=== PATIENT | female | born 2000 | race African-American/Black ===

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

== ENCOUNTER 2023-07-24 05:08 | Emergency (ER) | payer OTHER ==
[~2023-07-24] VITALS: Ht 177.8 cm; Wt 99.8 kg
[2023-07-24 05:16] VITALS: BP 122/72
[2023-07-24] MEDS ORDERED: AMOX-CLAV 875-1 EACH PO (05:24)
== END 2023-07-24 05:34 | disposition home or self-care (01) ==
LOC: ED 05:08
DX: H66.92 Otitis media, unspecified, left ear (principal); Z79.899 Other long term (current) drug therapy

== ENCOUNTER 2023-08-01 16:09 | Emergency (ER) | payer OTHER ==
[~2023-08-01] VITALS: Wt 90.7 kg
[~2023-08-01 16:09] MED LIST changes: +AMOX-CLAV 875-1 EACH PO
[2023-08-01 16:33] VITALS: BP 106/54
[2023-08-01] MEDS ORDERED: CIPROFLOX-DEXA7.5 ML OT (17:10)
[2023-08-01] MEDS ORDERED: AMOX-CLAV 875-1 EACH PO (17:10)
== END 2023-08-01 17:25 | disposition home or self-care (01) ==
LOC: ED 16:09
DX: H92.22 Otorrhagia, left ear (principal); F41.9 Anxiety disorder, unspecified; Z98.890 Other specified postprocedural states; Z88.8 Allergy status to other drugs, medicaments and biological substances

== ENCOUNTER 2024-07-14 08:09 | Emergency (ER) | payer OTHER ==
[~2024-07-14] VITALS: Wt 88.2 kg
[~2024-07-14 08:09] MED LIST changes: +CIPROFLOX-DEXA7.5 ML OT
[2024-07-14 08:18] VITALS: BP 102/71
[2024-07-14] MEDS ORDERED: VIBRAMYCIN100 MG PO (08:46)
== END 2024-07-14 08:50 | disposition home or self-care (01) ==
LOC: ED 08:09
DX: N61.1 Abscess of the breast and nipple (principal); Z79.899 Other long term (current) drug therapy

== ENCOUNTER → 2024-07-16 | Outpatient (CLI) | payer OTHER ==
[~2024-07-16] MED LIST changes: +VIBRAMYCIN100 MG PO
== END | disposition home or self-care (01) ==
LOC: US 13:30 → MAMMO 13:30 → US 13:46
PROVIDERS: ATTEND Student in an Organized Health Care Education/Training Program
DX: N61.1 Abscess of the breast and nipple (principal)

== ENCOUNTER → 2024-09-02 | Outpatient (CLI) | payer OTHER | END | disposition home or self-care (01) | LOC: US 08-21 14:00 | PROVIDERS: ATTEND Family Medicine | DX: N61.1 Abscess of the breast and nipple (principal) ==